=== PATIENT | female | born 1960 | race Caucasian/White ===

== ENCOUNTER 2021-06-06 20:39 | Emergency (ER) | payer BC ==
[~2021-06-06] VITALS: Ht 167.6 cm; Wt 99.7 kg
[2021-06-06 21:07] LABS: BASO % 0 % (0-3); EOS % 0 % (0-3); HEMATOCRIT 45.9 % (36.0-47.0); HEMOGLOBIN 14.6 g/dL (12.0-15.5); LYMPH # 1.6 x10^3/uL (1.0-4.8); LYMPH % 8 % (24-48); MEAN CORPUSCULAR HEMOGLOBIN 31 pg (25-35); MEAN CORPUSCULAR HGB CONC 32 g/dL (31-37); MEAN CORPUSCULAR VOLUME 98 fL (79-100); MONO # 1.1 x10^3/uL (0.0-1.1); MONO % 6 % (0-9); NEUT # 16.8 x10^3uL (1.8-7.7); NEUT % 86 % (31-73); PLATELET COUNT 176 x10^3/uL (140-400); RED BLOOD COUNT 4.68 x10^6/uL (3.50-5.40); RED CELL DISTRIBUTION WIDTH 17.2 % (11.5-14.5); WHITE BLOOD COUNT 19.6 x10^3/uL (4.0-11.0)
--- NOTE | 2021-06-06 21:07 | PHYS DOC ---
General Adult EDM: Chief Complaint: SHORTNESS OF BREATH HPI: HPI: 60-year-old female presents via EMS with sudden onset shortness of breath. The patient has been feeling generally ill like she has a cold with a fever for a couple of days. She has had more chills today. She started to have significant increase in shortness of breath this evening and she called EMS. When EMS arrived they found her oxygen saturation to be in the 80s. They placed her on nonrebreather. Patient denies any lung or cardiac history. Review of Systems: Review of Systems: Constitutional: Denies fever or chills Eyes: Denies change in visual acuity HENT: Denies nasal congestion or sore throat Respiratory: shortness of breath Cardiovascular: Denies chest pain or edema GI: Denies abdominal pain, nausea, vomiting, bloody stools or diarrhea : Denies dysuria Musculoskeletal: Denies back pain or joint pain Integument: Denies rash Neurologic: Denies headache, focal weakness or sensory changes Endocrine: Denies polyuria or polydipsia Lymphatic: Denies swollen glands Psychiatric: Denies depression or anxiety Allergies: Allergies: Allergies Coded Allergies Type Severity Reaction Last Updated Verified allopurinol Allergy Intermediate 06/06/21 Yes benazepril Allergy Intermediate 06/06/21 Yes latex Allergy Intermediate 06/06/21 Yes Physical Exam: PE: Constitutional: Well developed, well nourished, moderate acute distress, non- toxic appearance. [] HENT: Normocephalic, atraumatic, bilateral external ears normal, oropharynx moist, no oral exudates, nose normal. [] Eyes: PERRLA, EOMI, conjunctiva normal, no discharge. [] Neck: Normal range of motion, no tenderness, supple, no stridor. [] Cardiovascular: Heart rate regular rhythm, no murmur [] Lungs & Thorax: Bilateral breath sounds clear to auscultation [] Abdomen: Bowel sounds normal, soft, no tenderness, no masses, no pulsatile masses. [] Skin: Warm, dry, no erythema, no rash. [] Back: No tenderness, no CVA tenderness. [] Extremities: No tenderness, no cyanosis, no clubbing, ROM intact, no edema. [] Neurologic: Alert and oriented X 3, normal motor function, normal sensory function, no focal deficits noted. [] Psychologic: Affect normal, judgement normal, mood normal. [] EKG: EKG: Regular rhythm, rate 113, normal axis, no ST elevation or depression, A. fib. [] Radiology/Procedures: Radiology/Procedures: [] Heart Score: C/O Chest Pain: N/A Risk Factors: Risk Factors: DM, Current or recent (<one month) smoker, HTN, HLP, family history of CAD, obesity. Risk Scores: Score 0 - 3: 2.5% MACE over next 6 weeks - Discharge Home Score 4 - 6: 20.3% MACE over next 6 weeks - Admit for Clinical Observation Score 7 - 10: 72.7% MACE over next 6 weeks - Early Invasive Strategies Course & Med Decision Making: Course & Med Decision Making Pertinent Labs and Imaging studies reviewed. (See chart for details) The patient is moving air. Her breath sounds are equal bilaterally. Initial venous blood gas shows pH 7.251, CO2 44, PO2 21 bicarb 19.4. Patient is on 100% oxygen nonrebreather. We will change her over to BiPAP. Labs and imaging are pending. The patient's EKG is negative for ST elevation. The patient's troponin is 405. She appears to be having an NSTEMI. I also ordered a CT angiogram to rule out pulmonary embolus. I placed her on cardiovascular heparin protocol. The patient's CT angiogram shows bilateral pulmonary embolus with right heart strain. See official read for details. She will be transferred to the ICU at [facility] I have spoken with the svp digital sales food & cooking Dr. Funez and he has accepted the patient. I also spoke with the hospitalist, Dr. Sutton and he has accepted the patient for transfer. [] Nila Disclaimer: Nila Disclaimer: This electronic medical record was generated, in whole or in part, using a voice recognition dictation system. Departure Departure: Impression: Primary Impression: NSTEMI (non-ST elevated myocardial infarction) Additional Impressions: Shortness of breath Bilateral pulmonary embolism Disposition: 02 SHORT TERM HOSPITAL Condition: GUARDED YOLIS CHRISTIAN DO Jun 06, 2021 21:07
[2021-06-06 21:21] LABS: CALCIUM 8.6 mg/dL (8.5-10.1); CREATININE 1.5 mg/dL (0.6-1.0); GFR 35.2; POTASSIUM 3.7 mmol/L (3.5-5.1)
[2021-06-06 21:27] LABS: ALBUMIN 2.8 g/dL (3.4-5.0); TOTAL BILIRUBIN 0.7 mg/dL (0.2-1.0); TOTAL PROTEIN 5.7 g/dL (6.4-8.2)
[2021-06-06] MEDS ORDERED: CONTRAST GIVEN. MC PRN (21:30)
[2021-06-06 21:35] LABS: % BANDS 5 % (0-9); % LYMPHS 12 % (24-48); % MONOS 1 % (0-10); % SEGS 82 % (35-66); ANISOCYTOSIS SLIGHT; PLT ESTIMATE ADEQUATE (ADEQUATE)
[2021-06-06] MEDS ORDERED: IOHEXOL 350 MG/ML 100 ML VIAL. ONE (21:39)
[2021-06-06] MEDS ORDERED: ONDANSETRON PF 4 MG/2 ML VIAL. ONE (21:55)
[2021-06-06] MEDS ORDERED: HEPARIN 25,000UTS/250ML PREMIX 250 ML IV PRN (22:00)
[2021-06-06] MEDS ORDERED: IOHEXOL 350 MG/ML 100 ML VIAL. IV ONE (22:00)
[2021-06-06] MEDS ORDERED: HEPARIN for IV BOLUS 10,000 UNIT/10 ML VIAL. IV PRN (22:00)
[2021-06-06] MEDS ORDERED: ONDANSETRON PF 4 MG/2 ML VIAL. IVP ONE ×2 (22:00→23:30)
[2021-06-06] MEDS ORDERED: IV NORMAL SALINE 1,000ML 1,000 ML IV ONE (22:00)
--- NOTE | 2021-06-06 22:14 | RAD ---
Exam: Chest one view INDICATION: Shortness of breath TECHNIQUE: Frontal view of the chest Comparisons: None FINDINGS: The cardiomediastinal silhouette and pulmonary vessels are within normal limits. The lung and pleural spaces are clear. IMPRESSION: No acute cardiopulmonary process. Electronically signed by: Fidel Harrington MD (06/06/2021 10:12 PM) YOVANNY
[2021-06-06] MEDS ORDERED: ANTI-COAG MONITOR BY PHARMACY. MC PRN (22:15)
[2021-06-06 22:25] VITALS: BP 105/83
[2021-06-06] MEDS ORDERED: HEPARIN for IV BOLUS 10,000 UNIT/10 ML VIAL. IV ONE (22:30)
--- NOTE | 2021-06-06 22:32 | RAD ---
Exam: CT of chest with contrast INDICATION: Sudden onset shortness of breath TECHNIQUE: Sequential axial images through the chest obtained following the administration of 60 mL o f Isovue-370 IV contrast. Sagittal and coronal reformatted images were reconstructed from the axial d samy and reviewed. Exposure: One or more of the following in the visualized dose reduction techniques were utilized for this examination: 1. Automated exposure control 2. Adjustment of the MA and/or KV according to patient size 3. Use of iterative of reconstructive technique Comparisons: Chest x-ray same day FINDINGS: Visualized portions of the thyroid are unremarkable. No enlarged mediastinal lymph nodes. Heart size is normal. No pericardial effusion. Thoracic aorta has a normal course and caliber. Pulmon issa artery is not enlarged. There is extensive bilateral pulmonary emboli extending from the right an d left main pulmonary artery into lobar and segmental branches. Airways are patent. No consolidation or pneumothorax. No suspicious lung nodules. No pleural effusion or thickening. Visualized upper abdomen is unremarkable. No suspicious osseous lesions or acute fractures. IMPRESSION: Extensive bilateral pulmonary emboli as described above with mild enlargement of the right lateral ve ntricle. Correlate for right heart strain. FOR INTERNAL CODING PURPOSES Critical result: Findings discussed with YOLIS CHRISTIAN DO at 06/06/2021 10:29 PM. RESULT CODE: (C) Electronically signed by: Fidel Harrington MD (06/06/2021 10:30 PM) [facility]
--- NOTE | 2021-06-07 02:07 | EKG ---
[address] [address] Test Date: 2021-06-06 Test Time: 21:42:52 Pat Name: ADELINA NEVAREZ Department: Room: Gender: F [place] Porter: : 1960 Requested By: YOLIS CHRISTIAN Order Number: [id number] Reading MD: Brayden Funez MD Measurements Intervals [place] Rate: 113 P: FL: QRS: 26 QRSD: 66 T: 15 QT: 278 QTc: 386 Interpretive Statements Atrial fibrillation with rapid ventricular response NON-SPECIFIC ST/T CHANGES Electronically Signed On 06-08-2021 6:55:32 CDT by Brayden Funez MD
== END 2021-06-06 23:25 | disposition short-term general hospital (02) ==
LOC: ER 20:39
DX: I21.4 Non-ST elevation (NSTEMI) myocardial infarction (principal); I26.99 Other pulmonary embolism without acute cor pulmonale; Z20.822 Contact with and (suspected) exposure to COVID-19; Z88.8 Allergy status to other drugs, medicaments and biological substances; Z91.040 Latex allergy status
CPT/HCPCS: 36415; 71045; 71275; 80053; 82803; 84484; 85007; 85025; 85610; 85730; 93005; 94660; 96365; 96375; 96376; 99285; C9803; J1644; J2405; J7030; Q9967; U0003